=== PATIENT | female | born 1995 | race Caucasian/White ===

== ENCOUNTER 2018-04-23 16:46 | Outpatient (CLI) | payer MEDICAID ==
[2018-04-23 17:14] LABS: APPEARANCE,URINE CLEAR; BILIRUBIN,URINE NEGATIVE (NEGATIVE); COLOR,URINE YELLOW; GLUCOSE, URINE NEGATIVE (NEGATIVE); KETONES,URINE NEGATIVE (NEGATIVE); LEUKOCYTE ESTERASE,URINE NEGATIVE (NEGATIVE); NITRITE,URINE NEGATIVE (NEGATIVE); PROTEIN,URINE NEGATIVE (NEGATIVE); URINE SPECIFIC GRAVITY 1.012; UROBILINOGEN,URINE NEGATIVE mg/dL (<2.0)
[2018-04-23 17:38] LABS: URINE AMPHETAMINES SCREEN NEGATIVE; URINE BARBITURATES SCREEN NEGATIVE; URINE BENZODIAZEPINES SCREEN NEGATIVE; URINE COCAINE SCREEN NEGATIVE; URINE MARIJUANA (THC) SCREEN NEGATIVE; URINE METHADONE SCREEN NEGATIVE; URINE PHENCYCLIDINE SCREEN NEGATIVE
[2018-04-23 17:40] LABS: BACTERIA (WET MOUNT) 3+ BACTERIA SEEN; RBCS (WET MOUNT) 1+ RBCS SEEN; T.VAGINALIS (WET MOUNT) NO TRICHOMONAS SEEN; WBCS (WET MOUNT) 2+ WBCS SEEN; YEAST (WET MOUNT) NO YEAST SEEN
[2018-04-23 17:41] LABS: EPITHELIALS (WET MOUNT) 4+ EPITHELIALS SEEN
--- NOTE | 2018-04-23 18:10 | Non Stress Test Report ---
Non Stress Test Datetime Report Generated by CPN: 04/23/2018 18:09 DEMOGRAPHIC EGA NST: 34.3 INDICATION Indication for Study: Ordered by Provider MONITORING Monitor Explained: Monitor Explained; Test Explained; Patient Verbalized Understanding Time on Monitor: 04/23/2018 17:18 Time off Monitor: 04/23/2018 17:38 NST Duration: 20 NST INTERVENTIONS NST Interventions: None Physician Notified NST: Dr. Arguelles BABY A: [id number] BABY A Movement : Present Movement : Present Contraction Frequency : irregular FHR Baseline : 140 Accelerations : 15X15 Decelerations : None Variability : Moderate 6-25bpm NST Review: Meets Criteria for Reactive NST NST Review: Meets Criteria for Reactive NST NST Review and Verified By : MARYELLEN Liao Results: Reactive NST Results: Reactive NST REPORT Report Trigger: Send Report
[2018-04-23 19:02] LABS: CHLAM PCR NOT DETECTED (NOT DETECT); GON PCR NOT DETECTED (NOT DETECT)
== END 2018-04-23 18:19 | disposition home or self-care (01) ==
LOC: LC 16:46
PROVIDERS: ATTEND Obstetrics & Gynecology
PROC: 4A1HXCZ Monitoring of Products of Conception, Cardiac Rate, External Approach (ICD-10-PCS; principal; 2018-04-23)
DX: Z34.93 Encounter for supervision of normal pregnancy, unspecified, third trimester (principal)
CPT/HCPCS: 59025; 80307; 81001; 84112; 87210; 87491; 87591

== ENCOUNTER 2018-05-13 16:55 | Outpatient (CLI) | payer MEDICAID ==
--- NOTE | 2018-05-13 17:53 | Non Stress Test Report ---
Non Stress Test Datetime Report Generated by CPN: 05/13/2018 17:52 DEMOGRAPHIC EGA NST: 37.2 INDICATION Indication for Study: Ordered by Provider VITAL SIGNS Temperature - NST: 98.2 Pulse - NST: 68 RESP - NST: 18 NBPSYS NST: 119 NBPDIA NST: 69 MONITORING Monitor Explained: Monitor Explained; Test Explained; Patient Verbalized Understanding Time on Monitor: 05/13/2018 17:11 NST INTERVENTIONS NST Interventions: None Physician Notified NST: Dr Eloy BABY A: [id number] BABY A Movement : Present Contraction Frequency : irregular FHR Baseline : 135 Accelerations : 15X15 Decelerations : None Variability : Moderate 6-25bpm NST Review: Meets Criteria for Reactive NST NST Review and Verified By : Cassidy Valladares RNC NST Results: Reactive NST REPORT Report Trigger: Send Report
== END 2018-05-13 17:50 | disposition home or self-care (01) ==
LOC: LC 16:55
PROVIDERS: ATTEND Student in an Organized Health Care Education/Training Program
PROC: 4A1HXCZ Monitoring of Products of Conception, Cardiac Rate, External Approach (ICD-10-PCS; principal; 2018-05-13)
DX: O47.1 False labor at or after 37 completed weeks of gestation (principal); Z3A.37 37 weeks gestation of pregnancy
CPT/HCPCS: 59025; 87070

== ENCOUNTER 2018-05-18 12:40 | Outpatient (CLI) | payer MEDICAID ==
[2018-05-18 13:06] LABS: APPEARANCE,URINE SLIGHTLY-CLOUDY; BILIRUBIN,URINE NEGATIVE (NEGATIVE); COLOR,URINE YELLOW; GLUCOSE, URINE NEGATIVE (NEGATIVE); KETONES,URINE NEGATIVE (NEGATIVE); LEUKOCYTE ESTERASE,URINE NEGATIVE (NEGATIVE); NITRITE,URINE NEGATIVE (NEGATIVE); PROTEIN,URINE NEGATIVE (NEGATIVE); URINE SPECIFIC GRAVITY 1.015; UROBILINOGEN,URINE NEGATIVE mg/dL (<2.0)
[2018-05-18 13:26] LABS: URINE BARBITURATES SCREEN NEGATIVE; URINE BENZODIAZEPINES SCREEN NEGATIVE; URINE COCAINE SCREEN NEGATIVE; URINE MARIJUANA (THC) SCREEN NEGATIVE; URINE METHADONE SCREEN NEGATIVE; URINE PHENCYCLIDINE SCREEN NEGATIVE
[2018-05-18 13:36] LABS: URINE AMPHETAMINES SCREEN NEGATIVE
--- NOTE | 2018-05-18 13:45 | Non Stress Test Report ---
Non Stress Test Datetime Report Generated by CPN: 05/18/2018 13:44 DEMOGRAPHIC EGA NST: 38.0 INDICATION Indication for Study: Ordered by Provider MONITORING Monitor Explained: Monitor Explained; Test Explained; Patient Verbalized Understanding Time on Monitor: 05/18/2018 12:56 Time off Monitor: 05/18/2018 13:33 NST Duration: 37 NST INTERVENTIONS NST Interventions: PO Hydration Physician Notified NST: Dr Eloy BABY A: [id number] BABY A Movement : Present Contraction Frequency : irregular FHR Baseline : 140 Accelerations : 15X15 Decelerations : None Variability : Moderate 6-25bpm NST Review: Meets Criteria for Reactive NST NST Review and Verified By : Nimo Peña RN NST Results: Reactive NST REPORT Report Trigger: Send Report
== END 2018-05-18 13:44 | disposition home or self-care (01) ==
LOC: LC 12:40
PROVIDERS: ATTEND Obstetrics & Gynecology
PROC: 4A1HXCZ Monitoring of Products of Conception, Cardiac Rate, External Approach (ICD-10-PCS; principal; 2018-05-18)
DX: O47.1 False labor at or after 37 completed weeks of gestation (principal); Z3A.38 38 weeks gestation of pregnancy
CPT/HCPCS: 59025; 80307; 81005; 84112

== ENCOUNTER 2018-06-01 10:30 | Outpatient (CLI) | payer MEDICAID ==
[2018-06-01] MEDS ORDERED: HYDROXYZINE PAMOATE 50 MG CAPSULE ONE (11:25)
--- NOTE | 2018-06-01 11:26 | Non Stress Test Report ---
Non Stress Test Datetime Report Generated by CPN: 06/01/2018 11:26 DEMOGRAPHIC EGA NST: 40.0 INDICATION Indication for Study: Ordered by Provider MONITORING Monitor Explained: Monitor Explained; Test Explained; Patient Verbalized Understanding Time on Monitor: 06/01/2018 10:45 Time off Monitor: 06/01/2018 11:25 NST Duration: 40 NST INTERVENTIONS NST Interventions: None Physician Notified NST: Dr Younger BABY A: [id number] BABY A Movement : Present Contraction Frequency : 4-6 FHR Baseline : 145 Accelerations : 15X15 Decelerations : None Variability : Moderate 6-25bpm NST Review: Meets Criteria for Reactive NST NST Review and Verified By : Nimo Hammondsavaandrew RN NST Results: Reactive NST REPORT Report Trigger: Send Report
[2018-06-01 11:39] LABS: APPEARANCE,URINE SLIGHTLY-CLOUDY; BILIRUBIN,URINE NEGATIVE (NEGATIVE); COLOR,URINE YELLOW; GLUCOSE, URINE NEGATIVE (NEGATIVE); KETONES,URINE NEGATIVE (NEGATIVE); LEUKOCYTE ESTERASE,URINE TRACE (NEGATIVE); NITRITE,URINE NEGATIVE (NEGATIVE); PROTEIN,URINE NEGATIVE (NEGATIVE); URINE SPECIFIC GRAVITY 1.014; UROBILINOGEN,URINE NEGATIVE mg/dL (<2.0)
[2018-06-01 11:58] LABS: URINE AMPHETAMINES SCREEN NEGATIVE; URINE BARBITURATES SCREEN NEGATIVE; URINE BENZODIAZEPINES SCREEN NEGATIVE; URINE COCAINE SCREEN NEGATIVE; URINE MARIJUANA (THC) SCREEN NEGATIVE; URINE METHADONE SCREEN NEGATIVE; URINE PHENCYCLIDINE SCREEN NEGATIVE
== END 2018-06-01 11:39 | disposition home or self-care (01) ==
LOC: LC 10:30
PROVIDERS: ATTEND Obstetrics & Gynecology
PROC: 4A1HXCZ Monitoring of Products of Conception, Cardiac Rate, External Approach (ICD-10-PCS; principal; 2018-06-01)
DX: O47.1 False labor at or after 37 completed weeks of gestation (principal); Z3A.40 40 weeks gestation of pregnancy
CPT/HCPCS: 59025; 81005; 80307; J3490

== ENCOUNTER 2018-06-02 07:29 | Outpatient (CLI) | payer MEDICAID ==
[2018-06-02 08:53] LABS: APPEARANCE,URINE SLIGHTLY-CLOUDY; BILIRUBIN,URINE NEGATIVE (NEGATIVE); COLOR,URINE YELLOW; GLUCOSE, URINE NEGATIVE (NEGATIVE); KETONES,URINE NEGATIVE (NEGATIVE); LEUKOCYTE ESTERASE,URINE MODERATE (NEGATIVE); NITRITE,URINE NEGATIVE (NEGATIVE); PROTEIN,URINE NEGATIVE (NEGATIVE); UROBILINOGEN,URINE NEGATIVE mg/dL (<2.0)
--- NOTE | 2018-06-02 09:40 | Non Stress Test Report ---
Non Stress Test Datetime Report Generated by CPN: 06/02/2018 09:40 DEMOGRAPHIC EGA NST: 40.1 INDICATION Indication for Study: Ordered by Provider MONITORING Monitor Explained: Monitor Explained; Test Explained; Patient Verbalized Understanding Time on Monitor: 06/02/2018 09:16 Time off Monitor: 06/02/2018 09:36 NST Duration: 20 NST INTERVENTIONS NST Interventions: None Physician Notified NST: Dr. Pepe BABY A: [id number] BABY A Movement : Present Contraction Frequency : irregular FHR Baseline : 145 Accelerations : 15X15 Decelerations : None Variability : Moderate 6-25bpm NST Review: Meets Criteria for Reactive NST NST Review and Verified By : Tejal Zimmerman RN NSMichael Results: Reactive NST REPORT Report Trigger: Send Report
[2018-06-02 09:45] LABS: URINE AMPHETAMINES SCREEN NEGATIVE; URINE BARBITURATES SCREEN NEGATIVE; URINE BENZODIAZEPINES SCREEN NEGATIVE; URINE COCAINE SCREEN NEGATIVE; URINE MARIJUANA (THC) SCREEN NEGATIVE; URINE METHADONE SCREEN NEGATIVE; URINE PHENCYCLIDINE SCREEN NEGATIVE
[2018-06-02] MEDS ORDERED: MAG HYDROX/AL HYDROX/SIMETH SUSP 30 ML UDCUP PO ONE (19:24)
== END 2018-06-02 09:51 | disposition home or self-care (01) ==
LOC: LC 07:29
PROVIDERS: ATTEND Obstetrics & Gynecology
PROC: 4A1HXCZ Monitoring of Products of Conception, Cardiac Rate, External Approach (ICD-10-PCS; principal; 2018-06-02)
DX: O48.0 Post-term pregnancy (principal)
CPT/HCPCS: 59025; 80307; 81005; 84112; 87070

== ENCOUNTER 2018-06-02 16:01 | Inpatient (IN) | payer MEDICAID ==
[2018-06-02] MEDS ORDERED: RINGERS SOLUTION,LACTATED 1,000 ML IV PRN (16:15)
[2018-06-02] MEDS ORDERED: MISOPROSTOL 0.2 MG TABLET ONE (16:46)
[2018-06-02] MEDS ORDERED: OXYTOCIN/NORMAL SALINE 20 UNIT/1,000 ML RTUINJ ONE (16:47)
[2018-06-02] MEDS ORDERED: EPHEDRINE SULFATE INJ 50 MG/1 ML AMPULE ONE (16:47)
[2018-06-02] MEDS ORDERED: LIDOCAINE 1% INJ-PF (10 MG/ML) 30 ML SDV ONE (16:47)
[2018-06-02] MEDS ORDERED: FENTANYL/BUPIVACAINE/NS/PF 300 MCG/150 ML RTUINJ EPI ONE (16:47)
[2018-06-02] MEDS ORDERED: BUPIVACAINE HCL 0.25 % INJ/PF (2.5 MG/1 ML) 30 ML VIAL ONE (16:48)
[2018-06-02 17:20] LABS: HEMATOCRIT 39.3 % (36.0-47.0); HEMOGLOBIN 13.2 g/dL (12.0-15.5); MEAN CORPUSCULAR HEMOGLOBIN 30.2 pg (27.0-33.4); MEAN CORPUSCULAR HGB CONC 33.6 g/dL (32.0-36.0); MEAN CORPUSCULAR VOLUME 90 fl (80-97); PLATELET COUNT 207 10^3/uL (150-450); RED BLOOD COUNT 4.38 10^6/uL (3.72-5.28); RED CELL DISTRIBUTION WIDTH 13.8 % (11.5-14.0); WHITE BLOOD COUNT 24.1 10^3/uL (4.0-10.5)
[2018-06-02 17:35] LABS: ABSOLUTE LYMPHOCYTES# (MANUAL) 1.4 10^3/uL (0.5-4.7); ABSOLUTE MONOCYTES # (MANUAL) 0.5 10^3/uL (0.1-1.4); ABSOLUTE NEUTROPHILS# (MANUAL) 21.9 10^3/uL (1.7-8.2); BASOPHILS % (MANUAL) 1 % (0-2); EOSINOPHILS % (MANUAL) 0 % (0-6); LYMPHOCYTES % (MANUAL) 6 % (13-45); MONOCYTES % (MANUAL) 2 % (3-13); SEGMENTED NEUTROPHILS % (MAN) 91 % (42-78); TOTAL CELLS COUNTED 100
[2018-06-02 17:36] LABS: PLATELET COMMENT ADEQUATE; TOXIC GRANULATION 1+
[2018-06-02] MEDS ORDERED: MAG HYDROX/AL HYDROX/SIMETH SUSP 30 ML UDCUP ONE (19:22)
--- NOTE | 2018-06-03 00:28 | Admission Physical ---
Datetime Report Generated by CPN: 06/03/2018 00:28 CURRENT ADMISSION Chief Complaint: Uterine Contractions Indication for Induction: Not Applicable Admit Impression : Term, Intrauterine Admit Plan: Initiate Labor Protocol ALLERGIES Medication Allergies: No Medication Allergies: No Known Allergies (06/02/2018) Latex: No Latex Allergies Food Allergies: none Environmental Allergies: none OBSTETRICAL HISTORY EDC: 06/01/2018 00:00 : 1 Para: 0 Term: 0 : 0 SAB: 0 IAB: 0 Ectopic: 0 Livin Cesareans: 0 VBACs: 0 Multiple Births: 0 Gestational Diabetes: No Rh Sensitization: No Incompetent Cervix: No DIEGO: No Infertility: No ART Treatment: No Uterine Anomaly: No IUGR: No Hx Previous C/S: No Macrosomia: No Hx Loss/Stillborn: No PIH: No Hx : No Placenta Previa/Abruption: No Depression/PP Depression: No PTL/PROM: No Post Hemorrhage: No Current Procedures: Ultrasound Obstetrical History Comments: G1- Current SEE RECORDS Alcohol: No Marijuana : No Cocaine: No Other Illicit Drugs: No Cigarettes: Never Smoker. [id number] MEDICAL HISTORY Diabetes: No Blood Transfusion: No Pulmonary Disease (Asthma, TB): No Breast Disease: No Hypertension: No Taxation Inspector Surgery: No Heart Disease: Yes Hosp/Surgery: Yes Autoimmune Disorder: No Anesthetic Complications: No Kidney Disease: No Abnormal Pap Smear: No Neuro/Epilepsy: No Psychiatric Disorders: No Other Medical Diseases: No Hepatitis/Liver Disease: No Significant Family History: No Varicosities/Phlebitis: No Trauma/Violence : No Thyroid Dysfunction: No Medical History Comments: heart murmur, wisdom teeth in 2010 INFECTIOUS HISTORY Gonorrhea: No Genital Herpes: No Chlamydia: No Tuberculosis: No Syphilis: No Hepatitis: No HIV/AIDS Exposure: No Rash or Viral Illness: No HPV: Yes Infectious History Comments: HPV 2013 PHYSICAL EXAM General: Normal HEENT: Normal Neurologic: Normal Thyroid: Normal Heart: Normal Lungs: Normal Breast: Deferred Back: Normal Abdomen: Normal Genitourinary Exam: Normal Extremities: Normal DTRs: Normal Pelvic Type: Adequate FETUS A EGA: 40.2 PLANS FOR LABOR AND DELIVERY Labor and Delivery: None Pain Management: Epidural Feeding Preference: Both Benefit of Breast Feed Discussed: Yes Circumcision: N/A INFORMED CONSENT Signature: with User ID: [email or web address]
[2018-06-03] MEDS ORDERED: OXYTOCIN/NORMAL SALINE 20 UNIT/1,000 ML RTUINJ IV PRN ×2 (00:31→01:41)
[2018-06-03] MEDS ORDERED: ACETAMINOPHEN 325 MG TABLET ONE (01:08)
[2018-06-03] MEDS ORDERED: ACETAMINOPHEN 325 MG TABLET PO ONE (01:25)
[2018-06-03] MEDS ORDERED: BENZOCAINE/MENTHOL AEROSOL SPRAY 56 ML TOP PRN (01:41)
[2018-06-03] MEDS ORDERED: PROMETHAZINE HCL 25 MG TABLET PO PRN (01:41)
[2018-06-03] MEDS ORDERED: ACETAMINOPHEN WITH CODEINE #3 TABLET PO PRN (01:41)
[2018-06-03] MEDS ORDERED: DIPHENHYDRAMINE HCL 25 MG CAPSULE PO PRN (01:41)
[2018-06-03] MEDS ORDERED: DIBUCAINE 1% OINTMENT 28 GM TP PRN (01:41)
[2018-06-03] MEDS ORDERED: NA PHOS,M-B/NA PHOS,DI-BA (ADULT) 133 ML ENEMA PR PRN (01:41)
[2018-06-03] MEDS ORDERED: ZOLPIDEM TARTRATE 5 MG TABLET PO PRN (01:41)
[2018-06-03] MEDS ORDERED: GLYCERIN/WITCH HAZEL LEAF 1 EACH MED..PAD TP PRN (01:41)
[2018-06-03] MEDS ORDERED: PROMETHAZINE HCL INJ 25 MG/1 ML VIAL IV PRN (01:41)
[2018-06-03] MEDS ORDERED: MAGNESIUM HYDROXIDE SUSP 30 ML UDCUP PO PRN (01:41)
[2018-06-03] MEDS ORDERED: ACETAMINOPHEN 650 MG SUPP.RECT PR PRN (01:41)
[2018-06-03] MEDS ORDERED: PSEUDOEPHEDRINE HCL 30 MG TABLET PO PRN (01:41)
[2018-06-03] MEDS ORDERED: DIPH/PERTUSS(ACELL)/TETANUS VAC/PF 0.5 ML SYR (>=10YO) IM PRN (01:41)
[2018-06-03] MEDS ORDERED: MEASLES,MUMPS&RUBELLA VACC/PF 0.5 ML VIAL SUBCUT PRN (01:41)
[2018-06-03] MEDS ORDERED: PROMETHAZINE HCL 25 MG SUPP.RECT PR PRN (01:41)
--- NOTE | 2018-06-03 01:44 | PDOC DELIVERY SUMMARY ---
Delivery Summary - Maternal Risk Factors: Premature Rupture Membrane Ruptured Membranes: SROM Fluids: Clear - Delivery Presentation: Vertex Uterine Contraction Monitoring: External Support Person Present: Yes Placenta: Within Normal Limits Number of Vessels (Cord): 3 Nuchal Cord: No - Medications Type of Anesthesia:: Epidural
[2018-06-03] MEDS ORDERED: DIPHENHYDRAMINE HCL 50 MG/ML VIAL ONE (01:56)
--- NOTE | 2018-06-03 02:58 | Delivery Summary ---
Del Sum A-C Datetime Report Generated by CPN: 06/03/2018 02:58 DELIVERY PERSONNEL DELIVERY PERSONNEL: [id number] Delivery Doctor:: Collin Pepe MD Labor and Delivery Nurse:: Noreen Iglesias RNauto radiator mechanic Nurse:: Jodi Clifton RN Assistant Bookkeeper/PAVER INSTALLER: Maddison Xiao, FRENCH PROFESSOR Additional Personnel: : Sandra Gaspar RN MATERNAL INFORMATION Delivery Anesthesia: Epidural Medications After Delivery: Pitocin Drip 20 Units/1000ml NSS Maternal Complications: None LABOR SUMMARY EDC: 06/01/2018 00:00 No. Babies in Womb: 1 Attempted: No Labor Anesthesia: Epidural LABOR INFORMATION Reason for Induction: Not Applicable Onset of Labor: 06/02/2018 16:00 Complete Dilatation: 06/03/2018 23:30 Oxytocin: Augmentation Group B Beta Strep: Negative Reason Steroids Not Administered: Not Applicable MEMBRANES Membranes Rupture Method: Spontaneous Rupture of Membranes: 06/02/2018 23:26 Length of Rupture (hr): 2.12 Amniotic Fluid Color: Moderate Meconium Amniotic Fluid Amount: Small Amniotic Fluid Odor: Normal STAGES OF LABOR Stage 1 hr: 31 Stage 1 min: 30 Stage 2 hr: -21 Stage 2 min: -57 Stage 3 hr: 0 Stage 3 min: 3 Total Time in Labor hr: 9 Total Time in Labor min: 36 VAGINAL DELIVERY Episiotomy: None Laceration #1: Vaginal Laceration Extension #1: N/A Laceration Repair: No Laceration Repair Note: no repair required Sponge Count Correct: Yes Sharps Count Correct: N/A CSECTION DELIVERY Primary Indication: N/A Secondary Indication: N/A CSection Incidence: N/A Labor: N/A Elective: N/A CSection Incision: N/A BABY A INFORMATION Infant Delivery Date/Time: 06/03/2018 01:33 Method of Delivery: Vaginal Born in Route : No : N/A Forceps: N/A Vacuum Extraction: N/A Shoulder Dystocia : No PRESENTATION/POSITION BABY A Presentation: Cephalic Cephalic Presentation: Vertex Vertex Position: Left Occipital Anterior Breech Presentation: N/A PLACENTA INFORMATION BABY A Placenta Delivery Time : 06/03/2018 01:36 Placenta Method of Delivery: Spontaneous Placenta Status: Delivered SCORES BABY A Heart Rate 1 min: >100 bpm Resp Effort 1 min: Good Cry Reflex Irritability 1 min: Cough or Sneeze or Pulls Away Muscle Tone 1 min: Active Motion Color 1 min: Blue/Pale Resuscitation Effort 1 min: Tactile Stimulation SCORE 1 MIN: 8 Heart Rate 5 min: >100 bpm Resp Effort 5 min: Good Cry Reflex Irritability 5 min: Cough or Sneeze or Pulls Away Muscle Tone 5 min: Active Motion Color 5 min: Body [place], Extremities Blue Resuscitation Effort 5 min: Tactile Stimulation SCORE 5 MIN: 9 INFORMATION BABY A Gestational Age at Delivery: 40.2 Gestational Status: Full Term- 39- 40.6 Weeks Infant Outcome : Liveborn Condition : Stable Infant Sex: Female IDENTIFICATION BABY A Verification Date/Time: 06/03/2018 02:07 ID Band Number: [id number] Mother's Name Verified: Yes RN Verifying Infant: Adrienne MARYELLEN Additional Verifying Personnel: Juan Manuel RN WEIGHT/LENGTH BABY A Infant Birthweight (gm): 3076 Weight (lb): 6 Weight (oz): 13 Length (in): 19.50 Length (cm): 49.53 CORD INFORMATION BABY A No. Cord Vessels: 3 Nuchal Cord : N/A Cord Blood Taken: Yes-For Eval (Mom's Blood Type - or O+) Infant Suction: Mouth; Nose ASSESSMENT BABY A Infant Complications: None Physical Findings at Delivery: Within Normal Limits Skin to Skin: Yes Transferred To: Nursery BABY B INFORMATION : N/A SIGNATURES Signature: with User ID: [email or web address]
[2018-06-03] MEDS ORDERED: DIPHENHYDRAMINE HCL 50 MG/ML VIAL IV ONE (03:15)
[2018-06-03] MEDS: IBUPROFEN 800 MG TABLET PO SCH ×3 (05:26→22:20)
[2018-06-03] MEDS: SENNOSIDES/DOCUSATE 8.6-50 MG 1 EACH TABLET PO SCH (10:14)
[2018-06-03] MEDS: DOCUSATE SODIUM 100 MG CAPSULE PO SCH ×2 (10:14→18:33)
[2018-06-03] MEDS: FERROUS SULFATE 325 MG TABLET PO SCH ×2 (10:14→18:33)
[2018-06-03] MEDS: PRENATAL VITAMIN W DHA CAPSULE PO SCH (10:14)
[2018-06-03] MEDS: FAMOTIDINE 20 MG TABLET PO SCH ×2 (10:14→22:20)
[2018-06-04 07:02] LABS: HEMATOCRIT 33.7 % (36.0-47.0); HEMOGLOBIN 11.5 g/dL (12.0-15.5); MEAN CORPUSCULAR VOLUME 91 fl (80-97); PLATELET COUNT 171 10^3/uL (150-450); RED CELL DISTRIBUTION WIDTH 13.9 % (11.5-14.0); WHITE BLOOD COUNT 10.4 10^3/uL (4.0-10.5)
[2018-06-04] MEDS: IBUPROFEN 800 MG TABLET PO SCH ×3 (07:22→21:38)
[2018-06-04] MEDS: FERROUS SULFATE 325 MG TABLET PO SCH ×2 (09:46→17:19)
[2018-06-04] MEDS: DOCUSATE SODIUM 100 MG CAPSULE PO SCH ×2 (09:46→17:20)
[2018-06-04] MEDS: PRENATAL VITAMIN W DHA CAPSULE PO SCH (09:46)
[2018-06-04] MEDS: FAMOTIDINE 20 MG TABLET PO SCH ×2 (09:46→21:38)
[2018-06-04] MEDS: SENNOSIDES/DOCUSATE 8.6-50 MG 1 EACH TABLET PO SCH (09:46)
--- NOTE | 2018-06-04 11:09 | PDOC PROGRESS REPORT ---
Subjective-OB Progress Note for:: 06/04/18 Subjective: reports bleeding slowing, pain controlled with current meds, denies needs Physical Exam (OB) Vital Signs: Temp Pulse Resp BP Pulse Ox 97.9 F 77 16 115/69 99 06/04/18 07:53 06/04/18 07:53 06/04/18 07:53 06/04/18 07:53 06/04/18 07:53 Intake & Output 06/03/18 06/04/18 06/05/18 06:59 06:59 06:59 Weight 68.2 kg - Abdomen Description: Soft Hernia Present: No Fundal Description: Firm, Midline Fundal Height: u/u - u/2 - Abdominal Distension: No distension Tenderness: Nontender - Extremities Lower extremities: Jimy's sign - neg Calf: Normal, Nontender Objective-Diagnostic Laboratory: 06/04/18 06:46 06/04/18 06:46 WBC 10.4 RBC 3.70 L Hgb 11.5 L Hct 33.7 L MCV 91 MCH 31.0 MCHC 34.0 RDW 13.9 Plt Count 171 Assessment and Plan(PN) - Assessment and Plan (1) Delivery normal Is this a current diagnosis for this admission?: Yes - Time Spent with Patient Time with patient: Less than 15 minutes Medications reviewed and adjusted accordingly: Yes - Disposition Anticipated Discharge: Home Within: within 24 hours
[2018-06-05] MEDS: IBUPROFEN 800 MG TABLET PO SCH (05:50)
[2018-06-05] MEDS: DOCUSATE SODIUM 100 MG CAPSULE PO SCH (09:06)
[2018-06-05] MEDS: FERROUS SULFATE 325 MG TABLET PO SCH (09:06)
[2018-06-05] MEDS: PRENATAL VITAMIN W DHA CAPSULE PO SCH (09:06)
[2018-06-05] MEDS: SENNOSIDES/DOCUSATE 8.6-50 MG 1 EACH TABLET PO SCH (09:06)
[2018-06-05] MEDS: FAMOTIDINE 20 MG TABLET PO SCH (09:06)
[2018-06-05 09:30] VITALS: BP 110/73
--- NOTE | 2018-06-05 11:08 | PDOC DISCHARGE SUMMARY ---
Final Diagnosis Discharge Date: 06/05/18 - Final Diagnosis (1) Delivery normal Is this a current diagnosis for this admission?: Yes Discharge Data - Discharge Medication Home Medications: No122/Iron/Folic Acid [ Multi Tablet] 1 each PO DAILY 04/23/18 Reason(s) for Admission: Onset of Labor Procedures: NST Intrapartum Procedure(s): Spontaneous Vaginal Delivery Complication(s): Laceration-Vaginal Laceration-Degree: 1st - Diagnosis Test Laboratory: Temp Pulse Resp BP Pulse Ox 97.8 F 68 17 110/73 98 06/05/18 07:47 06/05/18 07:47 06/05/18 07:47 06/05/18 07:47 06/05/18 07:47 06/02/18 06/04/18 16:35 06:46 RBC 4.38 3.70 L Hgb 13.2 11.5 L Hct 39.3 33.7 L - Discharge information/Instructions Discharge Activity: Balance Activity w/Rest, Pelvic Rest Discharge Diet: Regular Disposition: HOME, SELF-CARE Follow up with: [facility] in: 3, Weeks
== END 2018-06-05 12:55 | disposition home or self-care (01) | DRG 807 ==
LOC: LC 16:01 → LR 16:03 → 2S 06-03 03:29
PROVIDERS: ADMIT Obstetrics & Gynecology Gynecology; ATTEND Obstetrics & Gynecology Gynecology
PROC: 4A1HXCZ Monitoring of Products of Conception, Cardiac Rate, External Approach (ICD-10-PCS; 2018-06-02)
PROC: 10E0XZZ Delivery of Products of Conception, External Approach (ICD-10-PCS; principal; 2018-06-03)
DX: O70.0 First degree perineal laceration during delivery (principal); Z37.0 Single live birth; Z3A.40 40 weeks gestation of pregnancy
CPT/HCPCS: 36415; 85025; 85027; 86592; 86850; 86900; 86901; J1200; J2590; J3010; J3490